=== PATIENT | male | born 1965 | race Caucasian/White ===

== ENCOUNTER 2019-09-13 16:59 | Emergency (ER) | payer BC ==
[2019-09-13] MEDS ORDERED: AMPICILLIN/SULBACTAM 3 GM in SODIUM CHLORIDE 0.9% MINIBAG 100 ML IV STA (17:10)
[2019-09-13] MEDS ORDERED: KETOROLAC 30 MG/ML VIAL IVP STA (17:10)
[2019-09-13] MEDS ORDERED: DEXAMETHASONE 10 MG/ML VIAL IVP STA (17:10)
[2019-09-13] MEDS ORDERED: SODIUM CHLORIDE 0.9% 1,000 ML IV ONE (17:13)
--- NOTE | 2019-09-13 17:13 | ED Physician Documentation ---
History of Present Illness - Stated complaint Stated Complaint: SORE THROAT - Chief complaint Chief Complaint: Heent - History obtained from History obtained from: Patient - History of Present Illness Timing: Other (1 week of sore throat which is now severe and fever. The pain is worse on the left.) Review of Systems Constitutional: reports: Fever, Chills, Myalgias, Fatigue Nose: denies: Rhinorrhea / runny nose, Congestion Throat: reports: Sore throat Cardiac: denies: Chest pain / pressure, Palpitations Respiratory: denies: Dyspnea, Cough PD PAST MEDICAL HISTORY - Past Medical History Past Medical History: No - Past Surgical History Past Surgical History: No - Present Medications Home Medications: Ambulatory Orders Medication Instructions Recorded Confirmed Amox/Clav 875/125 [Augmentin] 1 each PO Q12H #20 tablet 09/13/19 Hydrocodone/Acetaminophen 1 - 2 each PO Q6H PRN #10 tablet 09/13/19 [Hydrocodon-Acetaminophen 5-325] predniSONE [Deltasone] 20 mg PO [id number] #21 tab 09/13/19 - Allergies Allergies/Adverse Reactions: Allergies Allergy/AdvReac Type Severity Reaction Status Date / Time No Known Drug Allergies Allergy Verified 09/13/19 17:02 - Social History Does the pt smoke?: No Smoking Status: Never smoker Does the pt drink ETOH?: No Does the pt have substance abuse?: No - Immunizations Immunizations are current?: Yes - POLST Patient has POLST: No PD ED PE NORMAL - Vitals Vital signs reviewed: Yes - General General: Alert and oriented X 3, No acute distress - HEENT HEENT: PERRL, EOMI, Other - Neck Neck: Supple, no meningeal sign, No bony TTP (He has a non-pointed early left peritonsillar swelling/assymetry with mild uvular Deviation.) - Neuro Neuro: Alert and oriented X 3, Normal speech Results - Vitals Vitals: Vital Signs - 24 hr 09/13/19 17:03 Temperature 37.1 C Heart Rate 84 Respiratory 16 Rate Blood Pressure 130/83 H O2 Saturation 95 - Labs Labs: Laboratory Tests 09/13/19 09/13/19 17:15 17:15 WBC 11.6 H RBC 5.17 Hgb 15.7 Hct 46.6 MCV 90.1 MCH 30.4 MCHC 33.7 RDW 12.9 Plt Count 231 MPV 10.8 Neut # (Auto) 8.2 H Lymph # (Auto) 2.5 [place] # (Auto) 0.7 Eos # (Auto) 0.1 Baso # (Auto) 0.1 Absolute Nucleated RBC 0.00 Nucleated RBC % 0.0 Sodium 139 Potassium 4.2 Chloride 100 L Carbon Dioxide 30 Anion Gap 9.0 BUN 10 Creatinine 0.9 Estimated GFR (MDRD) 88 L Glucose 103 H Calcium 9.3 Total Bilirubin 1.0 AST 15 ALT 22 Alkaline Phosphatase 54 Total Protein 7.9 Albumin 3.7 Globulin 4.2 Albumin/Globulin Ratio 0.9 L Lipase 27 PD MEDICAL DECISION MAKING - ED course ED course: 54-year-old gentleman with what appears to be an early peritonsillar abscess, does not clinically look like it needs an incision and drainage at this point. He is given IV fluids, Unasyn, Decadron, and Toradol Feeling better after the above interventions Departure - Departure Disposition: 01 Home, Self Care Clinical Impression: Peritonsillar abscess determined by examination Condition: Good Record reviewed to determine appropriate education?: Yes Instructions: ED Peritonsillar Abscess Prescriptions: Amox/Clav 875/125 [Augmentin] 1 each PO Q12H #20 tablet Hydrocodone/Acetaminophen [Hydrocodon-Acetaminophen 5-325] 1 - 2 each PO Q6H PRN #10 tablet PRN Reason: pain predniSONE [Deltasone] 20 mg PO [id number] #21 tab Comments: Return anytime for new or worsening symptoms. Follow-up with the ENT in 1 to 2 days for reevaluation. The closest to you is in [place], phone number is [phone].
[2019-09-13 17:29] LABS: BASOPHILS # (AUTO) 0.1 10^3/uL (0.0-0.1); BASOPHILS % (AUTO) 0.4 %; EOSINOPHILS # (AUTO) 0.1 10^3/uL (0.0-0.7); EOSINOPHILS % (AUTO) 0.8 %; HGB - HEMOGLOBIN 15.7 g/dL (14.0-18.0); LYMPHOCYTES # (AUTO) 2.5 10^3/uL (1.5-3.5); LYMPHOCYTES % (AUTO) 21.4 %; MEAN CORPUSCULAR HEMOGLOBIN 30.4 pg (27.0-31.0); MEAN CORPUSCULAR HGB CONC 33.7 g/dL (32.0-36.0); MEAN CORPUSCULAR VOLUME 90.1 fL (80.0-94.0); MEAN PLATELET VOLUME 10.8 fL (7.4-11.4); MONOCYTES # (AUTO) 0.7 10^3/uL (0.0-1.0); MONOCYTES % (AUTO) 6.1 %; NEUTROPHILS # (AUTO) 8.2 10^3/uL (1.5-6.6); NEUTROPHILS % (AUTO) 70.9 %; PLT - PLATELET COUNT 231 10^3/uL (130-450); RED BLOOD COUNT 5.17 10^6/uL (4.70-6.10); RED CELL DISTRIBUTION WIDTH 12.9 % (12.0-15.0); WHITE BLOOD COUNT 11.6 x10^3/uL (4.8-10.8)
[2019-09-13 17:36] LABS: ALBUMIN 3.7 g/dL (3.2-5.5); ALBUMIN/GLOBULIN RATIO 0.9 (1.0-2.2); CALCIUM 9.3 mg/dL (8.5-10.3); CREATININE 0.9 mg/dL (0.6-1.2); TOTAL PROTEIN 7.9 g/dL (6.7-8.2)
[2019-09-13] MEDS ORDERED: HYDROcod/ACET 5/325 Prepack 4 PO STA (18:05)
[2019-09-13 18:30] VITALS: BP 119/72
== END 2019-09-13 18:36 | disposition home or self-care (01) ==
LOC: ED 16:59
DX: J36 Peritonsillar abscess (principal)
CPT/HCPCS: 36415; 80053; 83690; 85025; 96365; 96375; 99283

== ENCOUNTER 2024-01-21 10:30 | Outpatient (CLI) | payer OTHER ==
--- NOTE | 2024-01-21 16:01 | XRAY Report ---
PROCEDURE: Foot 3+V LT INDICATIONS: SPRAIN OF LEFT TOE TECHNIQUE: 3 views of the foot were acquired. COMPARISON: None. FINDINGS: Bones: Subluxation at the PIP joint of the small toe. No fractures identified. Hallux valgus and buni on. No suspicious bony lesions. Soft tissues: No tibiotalar joint effusion. Achilles tendon appears normal. IMPRESSION: 1. Subluxation at the PIP joint of the small toe. 2. Hallux valgus and bunion. Reviewed by: Aaron De Anda MD on 01/21/2024 3:59 PM PDT Approved by: Aaron De Anda MD on 01/21/2024 3:59 PM PDT Station ID: [id number]
== END 2024-01-21 10:31 | disposition home or self-care (01) ==
LOC: DI 10:30
PROVIDERS: ATTEND Family Medicine
DX: S93.515A Sprain of interphalangeal joint of left lesser toe(s), initial encounter (principal); S93.135A Subluxation of interphalangeal joint of left lesser toe(s), initial encounter; M20.12 Hallux valgus (acquired), left foot; M21.612 Bunion of left foot